=== PATIENT | male | born 1960 | race Caucasian/White ===

== ENCOUNTER 2017-03-18 16:50 | Observation (INO) | payer MEDICARE ==
[~2017-03-18] VITALS: Ht 165.1 cm; Wt 136.0 kg
[~2017-03-18 16:50] MED LIST: ADLT ASA LOW81 MG PO; AMOXICILLIN250 M1 PO; ANDROGEL1 % TD; ATENOLOL25 MG PO; ATENOLOL50 MG PO; AUGMENTIN875TAB PO; BAYER LOW81 MG PO; BENTYL10 MG PO; CALCIUM 600 +600 MG PO; CARAFATE PO; CETIRIZ/PSE1 TAB PO; DELSYM30 MG/5 ML OR; DILAUDID 2MG2 MG/TAB PO; ENALAPRIL10 MG OR; FLEXERIL OR; FLEXERIL PO; FLUARIX QUADRIV1 INJ IM; HYZAAR1 TAB PO; IMODIUM A-D2 MG PO; LORTAB 1010 MG PO; LORTAB 5/3255 MG PO; LORTAB/VICODIN1 TAB OR; LOSARTAN/HCT1 TA1 PO; MEDDOSEPAK PO; MELOXICAM15 MG PO; MELOXICAM7.5 MG OR; MUCINEX DM1 TAB OR; NAPROSYN500 MG OR; ONE DAILY FOR MEN 50 PO; PAROXETINE20 MG PO; PERCOCET 5/325M1 TAB OR; PREVACID30 M3 PO; PROTONIX40 M2 PO; SIMVASTATIN40 MG OR; SIMVASTATIN40 MG PO; TIZANIDINE4 MG PO; TORADOL PO; ULTRAM50 M1 PO; ZOFRAN ODT4 MG PO; ZPAK PO; ZYRTEC10 MG PO
[2017-03-18 17:48] VITALS: BP 179/96
[2017-03-18 18:05] LABS: HEMATOCRIT 42.7 % (39.0-50.0); IMMATURE GRANULOCYTES 1.3 % (0.0-1.0); MEAN CELL VOLUME 86.8 fL CALC (80.0-100.0); MEAN CORPUSCULAR HGB 28.5 pG CALC (26.0-32.0); MEAN CORPUSCULAR HGB CONC 32.8 g/L CALC (32.0-36.0); NEUT# 5.26 thou/uL (1.82-7.42); RED BLOOD COUNT 4.92 mill/uL (4.70-6.10); RED CELL DISTRI WIDTH 13.6 % (11.5-15.5)
[2017-03-18 18:30] VITALS: BP 146/90
[2017-03-18 18:30] LABS: ANION GAP 19 (6-22 (CALC)); BUN 26 mg/dL (9-20); BUN/CREATININE RATIO 21 (12-20 (CALC)); CALCIUM 10.9 mg/dL (8.4-10.2); CALCULATED LDLCHOLESTEROL 47 mg/dL (62-129 (CALC)); CARBON DIOXIDE 27 mmol/l (22-30); CHLORIDE 104 mmol/l (95-108); CHOLESTEROL HDL RATIO 2.6 (<4.4 (CALC)); CREATININE 1.2 mg/dL (0.7-1.3); GFR > 60 ML/MIN (>=60 (CALC)); GFR FOR AFR.AMER. > 60 ML/MIN (>=60 (CALC)); GLUCOSE 103 mg/dL (75-110); HDL CHOLESTEROL 52 mg/dL (>=40); POTASSIUM 4.1 mmol/l (3.5-5.1); SODIUM 146 mmol/l (137-146); TOTAL CHOLESTEROL 134 mg/dl (0-199); TOTAL TRIGLYCERIDES 179 mg/dl (30-149); VLDL CHOLESTROL 36 mg/dl (8-62 (CALC))
[2017-03-18 19:56] LABS: URINE BILIRUBIN - DIPSTICK NEGATIVE (NEGATIVE); URINE BLOOD DIPSTICK TRACE-INTACT (NEGATIVE); URINE COLOR YELLOW; URINE GLUCOSE - DIPSTICK NEGATIVE (NEGATIVE); URINE KETONE NEGATIVE (NEGATIVE); URINE LEUK ESTERASE NEGATIVE (NEGATIVE); URINE NITRITE - DIPSTICK NEGATIVE (Negative); URINE PH 5.5 (4.5-8.0); URINE PROTEIN - DIPSTICK NEGATIVE (NEG-TRACE); URINE SPECIFIC GRAVITY 1.025; URINE UROBILINOGEN - DIPSTICK 0.2 E.U./dL (0.2)
[2017-03-18 19:57] LABS: URINE CLARITY CLEAR
--- NOTE | 2017-03-18 19:58 | NUR ---
PT ARRIVED ON UNIT @ [address] DALEY, ALERT AND ORIENTED X 4, C/O DIZZINESS, ORIENTED TO ROOM AND CALL SHAVER. RADIOLOGY CALLED TO REPORT PROTOCOL FOR CT ORDER AND DR DALEY CALLED TO CLARIFY ORDER FROM CT WITH CONTRAST TO CT WITHOUT CONTRAST. TRANSPORTED OFF UNIT TO CT & X-RAY VIA W/C AND BACK TO UNIT POST PROCEDURE. FAMILY MEMBERS AT BEDSIDE, WILL CONTINUE TO MONITOR.
--- NOTE | 2017-03-18 20:00 | NUR ---
PATIENT RESTING IN BED AT THIS TIME-AWAKE ALERT AND ORIENTEDX3. MULTIPLE FAMILY MEMBERS AT BEDSIDE. PATIENT ADMITTED FOR DIZZINESS AND SAFETY PRECAUTIONS REINFORCED. VERBALIZES UNDERSTANDING. NEW IV SITE STARTED TO LEFT FOREARM-#22 GAUGE WITH GOOD BLOOD RETURN. PATIENT STATES THAT HE DOES HAVE HISTORY OF BACK SURGERY WITH CHRONIC BACK PAIN ISSUES. DENIES ANY DIFFICULTY VOIDING AND STATES HAD BM TODAY. LUNGS ARE CLEAR AND HR IS IRREGULAR. EKG DONE AT BEDSIDE. TELE MONITORING DEVICE IN PLACE. ATE WELL FOR DINNER. CALL LIGHT IN REACH. WILL CONT TO MONITOR.
--- NOTE | 2017-03-18 21:30 | NUR ---
PATIENT MEDICATED FOR CHRONIC BACK PAIN WITH LORTAB 10/325MG PO FOR 6/10 PAIN SCALE. RESTING IN BED. CALL LIGHT IN REACH. WILL CONT TO MONITOR.
[2017-03-19] VITALS (7 sets, daily range): BP systolic 109–143; BP diastolic 70–83
--- NOTE | 2017-03-19 00:32 | NUR ---
RECIEVED CALL FROM ER-HR IN HIGH TEENS. RESPONDED TO ROOM AND PATIENT RESTING IN BED WATCHING ELECTRONICS AT THIS TIME. DENIES ANY PAIN OR PALPATATIONS. HR-60'S AND IRREGULAR AT THIS TIME. SKIN IS WARM AND DRY. CALL LIGHT IN REACH. WILL CONT TO MONITOR.
--- NOTE | 2017-03-19 01:49 | NUR ---
PATIENT MEDICATED FOR CHRONIC BACK PAIN WITH LORTAB 10/325MG PO FOR 6/10 PAIN SCALE. RESTING IN BED-CALL LIGHT IN REACH. WILL CONT TO MONITOR.
--- NOTE | 2017-03-19 04:30 | NUR ---
PATIENT RESTING IN BED AT THIS TIME WITH NO COMPLAINTS. CALL LIGHT IN REACH. WILL CONT TO MONITOR.
--- NOTE | 2017-03-19 07:00 | NUR ---
RECEIVED BEDSIDE REPORT FROM BABAK KRISHNAN. RESTING IN BED WITH EYES CLOSED, AWAKENS EASILY. RESPS EVEN AND UNLABORED ON ROOM AIR, TELE MONITOR IN PLACE. DENIES PAIN OR DISCOMFORT. PLAN OF CARE DISCUSSED. SAFETY PRECAUTIONS REINFORCED. BED IN LOWEST POSITION WITH WHEELS LOCKED. CALL LIGHT WITHIN REACH. ENCOURAGED PT TO CALL FOR ANY NEEDS.
[2017-03-19 07:18] LABS: ALBUMIN 4.2 g/dL (3.2-5.0); ALKALINE PHOSPHATASE 53 u/l (38-126); ANION GAP 17 (6-22 (CALC)); BILIRUBIN, TOTAL 0.4 mg/dL (0.0-1.4); BUN 20 mg/dL (9-20); BUN/CREATININE RATIO 17 (12-20 (CALC)); CALCIUM 10.4 mg/dL (8.4-10.2); CARBON DIOXIDE 27 mmol/l (22-30); CHLORIDE 106 mmol/l (95-108); CREATININE 1.2 mg/dL (0.7-1.3); GFR > 60 ML/MIN (>=60 (CALC)); GFR FOR AFR.AMER. > 60 ML/MIN (>=60 (CALC)); GLUCOSE 103 mg/dL (75-110); POTASSIUM 4.1 mmol/l (3.5-5.1); SGOT/AST 24 u/l (17-59); SGPT/ALT 42 u/l (21-72); SODIUM 146 mmol/l (137-146); TOTAL PROTEIN 6.9 g/dL (6.3-8.2)
--- NOTE | 2017-03-19 08:30 | NUR ---
DR DALEY IN WITH PT, NEW ORDERS RECEIVED.
--- NOTE | 2017-03-19 10:35 | NUR ---
TELE CHECK CALL RECEIVED FROM IN ER. UPON ENTERING ROOM PT WAS LEFT SIDE LYING IN BED AWAKE. SKIN PWD. DENIES PAIN/ MANUAL HR 65 AND IRREGULAR. DENIES PALPITATIONS. PT STATES "SOMETIMES I DO FEEL WEAK".
[2017-03-19] MEDS ORDERED: TRIGLIDE160 MG PO (14:49)
[2017-03-19] MEDS ORDERED: D32000 UNI1 PO (14:53)
[2017-03-19] MEDS ORDERED: B-12250 MCG PO (14:57)
--- NOTE | 2017-03-19 15:36 | NUR ---
AMBULATING IN HALLWAY WITH STEADY GAIT ACCOMPANIED BY PHYSICAL THERAPY.
--- NOTE | 2017-03-19 19:00 | NUR ---
RECEIVED CHANGE OF SHIFT REPORT FROM EULOGIO BUNCH. PATIENT LYING IN BED AND APPEARS NOT TO BE IN ANY APPARENT ACUTE DISTRESS OR DISCOMFORT. WILL CONTINUE TO MONITOR.
--- NOTE | 2017-03-20 | NUR ---
NO APPARENT ACUTE DISTRESS NOTED. RESTING WITH EYES CLOSED AND APPEARS TO BE ASLEEP.
--- NOTE | 2017-03-20 04:00 | NUR ---
NO APPARENT ACUTE CHANGES NOTED IN PT'S CONDITION.
[2017-03-20 05:36] LABS: HEMATOCRIT 40.2 % (39.0-50.0); HEMOGLOBIN 13.2 g/dl (14.0-18.0); IMMATURE GRANULOCYTES 1.2 % (0.0-1.0); MEAN CELL VOLUME 87.6 fL CALC (80.0-100.0); MEAN CORPUSCULAR HGB 28.8 pG CALC (26.0-32.0); MEAN CORPUSCULAR HGB CONC 32.8 g/L CALC (32.0-36.0); NEUT# 4.35 thou/uL (1.82-7.42); RED BLOOD COUNT 4.59 mill/uL (4.70-6.10); RED CELL DISTRI WIDTH 13.8 % (11.5-15.5)
[2017-03-20 05:40] VITALS: BP 142/84
[2017-03-20 06:07] LABS: ALKALINE PHOSPHATASE 47 u/l (38-126); ANION GAP 17 (6-22 (CALC)); BILIRUBIN, TOTAL 0.3 mg/dL (0.0-1.4); BUN 21 mg/dL (9-20); BUN/CREATININE RATIO 19 (12-20 (CALC)); CALCIUM 10.3 mg/dL (8.4-10.2); CARBON DIOXIDE 25 mmol/l (22-30); CHLORIDE 107 mmol/l (95-108); CREATININE 1.1 mg/dL (0.7-1.3); GFR > 60 ML/MIN (>=60 (CALC)); GFR FOR AFR.AMER. > 60 ML/MIN (>=60 (CALC)); GLUCOSE 106 mg/dL (75-110); SGOT/AST 24 u/l (17-59); SGPT/ALT 40 u/l (21-72); SODIUM 145 mmol/l (137-146); TOTAL PROTEIN 6.7 g/dL (6.3-8.2)
--- NOTE | 2017-03-20 07:00 | NUR ---
RECEIVED BEDSIDE REPORT FROM JAVED KRISHNAN. RESTING IN SUPINE POSITION WITH EYES CLOSED, AWAKENS EASILY. RESPS EVEN AND UNLABORED ON ROOM AIR, TELE MONITOR IN PLACE. RESQUESTS PAIN MEDS FOR C/O BACK PAIN, WILL MEDICATE PER MAR. PLAN OF CARE DISCUSSED. SAFETY PRECAUTIONS REINFORCED. BED IN LOWEST POSITION WITH WHEELS LOCKED. CALL LIGHT WITHIN REACH. ENCOURAGED PT TO CALL FOR ANY NEEDS.
[2017-03-20 07:33] VITALS: BP 141/82
--- NOTE | 2017-03-20 07:40 | NUR ---
MEDICATED WITH LORTAB PO FOR C/O 04/19 BACK PAIN.
[2017-03-20 07:41] VITALS: BP 141/82
--- NOTE | 2017-03-20 08:25 | NUR ---
DR DALEY IN WITH PT, NEW ORDERS RECEIVED.
--- NOTE | 2017-03-20 10:10 | NUR ---
Discharge instructions given. Patient verbalizes understanding of same. Discharged in stable condition via Ambulatory to Home with family. All belongings sent with pt.
== END 2017-03-20 10:08 | disposition home or self-care (01) ==
LOC: MS2 16:50
PROVIDERS: ADMIT Internal Medicine Geriatric Medicine; ATTEND Internal Medicine Geriatric Medicine
DX: R42 Dizziness and giddiness (principal); I10 Essential (primary) hypertension; E78.5 Hyperlipidemia, unspecified; K27.9 Peptic ulcer, site unspecified, unspecified as acute or chronic, without hemorrhage or perforation; K21.9 Gastro-esophageal reflux disease without esophagitis; I25.10 Atherosclerotic heart disease of native coronary artery without angina pectoris; F41.9 Anxiety disorder, unspecified; E66.01 Morbid (severe) obesity due to excess calories; Z68.42 Body mass index [BMI] 45.0-49.9, adult; H93.19 Tinnitus, unspecified ear; I49.3 Ventricular premature depolarization; R11.0 Nausea; M19.90 Unspecified osteoarthritis, unspecified site

== ENCOUNTER 2021-03-22 15:40 | Emergency (ER) | payer MEDICARE ==
[~2021-03-22] VITALS: Ht 177.8 cm; Wt 120.0 kg
[~2021-03-22 15:40] MED LIST changes: +B-12250 MCG PO; +D32000 UNI1 PO; +TRIGLIDE160 MG PO
[2021-03-22 18:11] LABS: HEMATOCRIT 37.8 % (39.0-50.0); HEMOGLOBIN 12.3 g/dl (14.0-18.0); IMMATURE GRANULOCYTES 0.2 % (0.0-5.0); MEAN CELL VOLUME 85.7 fL CALC (80.0-100.0); MEAN CORPUSCULAR HGB 27.9 pG CALC (26.0-32.0); MEAN CORPUSCULAR HGB CONC 32.5 g/dL CAL (32.0-36.0); NEUT# 12.9 thou/uL (1.82-7.42); RED BLOOD COUNT 4.41 mill/uL (4.70-6.10); RED CELL DISTRI WIDTH 13.9 % (11.5-15.5); URINE BILIRUBIN - DIPSTICK NEGATIVE (NEGATIVE); URINE BLOOD DIPSTICK LARGE (NEGATIVE); URINE COLOR BROWN; URINE GLUCOSE - DIPSTICK NEGATIVE (NEGATIVE); URINE KETONE NEGATIVE (NEGATIVE); URINE LEUK ESTERASE TRACE (NEGATIVE); URINE PH 6.5 (4.5-8.0); URINE PROTEIN - DIPSTICK 100 mg/dL (NEG-TRACE); URINE SPECIFIC GRAVITY 1.025; URINE UROBILINOGEN - DIPSTICK 0.2 E.U./dL (0.2)
[2021-03-22 18:12] LABS: URINE NITRITE - DIPSTICK NEGATIVE (Negative)
[2021-03-22 18:24] LABS: ALBUMIN 4.3 g/dL (3.2-5.0); CREATININE 1.5 mg/dL (0.7-1.3); POTASSIUM 3.9 mmol/l (3.5-5.1); URINE MUCUS MANY hpf (NONE-FEW); URINE RBC >100 RBC/hpf (0-5); URINE WBC 50-100 WBC/hpf (0-5)
[2021-03-22 18:26] LABS: BILIRUBIN, TOTAL 0.5 mg/dL (0.0-1.4); TOTAL PROTEIN 8.1 g/dL (6.3-8.2)
[2021-03-22] MEDS ORDERED: KEFLEX500 MG PO (19:21)
[2021-03-22] MEDS ORDERED: ULTRAM50 M1 PO (19:23)
[2021-03-22 19:29] VITALS: BP 160/82
== END 2021-03-22 19:40 | disposition home or self-care (01) ==
LOC: ED 15:40
PROVIDERS: Emergency Medicine
DX: N13.6 Pyonephrosis (principal); I10 Essential (primary) hypertension; B95.2 Enterococcus as the cause of diseases classified elsewhere

== ENCOUNTER 2023-10-23 15:20 | Observation (INO) | payer MEDICARE ==
[~2023-10-23] VITALS: Ht 177.8 cm; Wt 133.8 kg
[2023-10-23] VITALS (30 sets, daily range): BP systolic 133–197; BP diastolic 69–109
[~2023-10-23 15:20] MED LIST changes: +KEFLEX500 MG PO
[2023-10-23] MEDS ORDERED: ASPIRIN 81 MG/TAB PO ONE (15:40)
[2023-10-23] MEDS ORDERED: NITROGLYCERIN 0.4 MG/TAB SL ONE ×3 (15:40→17:45)
[2023-10-23 15:54] LABS: BASO% 0.6 % (0-3); EOS% 0.8 % (0-8); LYMPH% 21.1 % (15-41); MEAN CELL VOLUME 83.8 fL CALC (80.0-100.0); MEAN CORPUSCULAR HGB 26.9 pG CALC (26.0-32.0); MEAN CORPUSCULAR HGB CONC 32.2 g/dL CAL (32.0-36.0); MONO% 6.2 % (2-13); NEUT# 8.39 thou/uL (1.82-7.42); NEUT% 70.3 % (42-76); RED BLOOD COUNT 5.42 mill/uL (4.70-6.10); RED CELL DISTRI WIDTH 14.3 % (11.5-15.5)
[2023-10-23 15:55] LABS: HEMATOCRIT 45.4 % (39.0-50.0); HEMOGLOBIN 14.6 g/dl (14.0-18.0)
[2023-10-23 16:08] LABS: ALBUMIN 4.5 g/dL (3.2-5.0); BILIRUBIN, TOTAL 0.4 mg/dL (0.2-1.3); POTASSIUM 3.6 mmol/l (3.5-5.1); TOTAL PROTEIN 8.4 g/dL (6.3-8.2)
[2023-10-23 16:09] LABS: INTERNATIONAL NORMALIZED RATIO 1.1 RATIO (0.7-1.3)
[2023-10-23 16:11] LABS: PROTHROMBIN TIME 10.3 SECONDS (9.0-12.5)
[2023-10-23] MEDS ORDERED: NITROGLYCERIN 2% OINT UD 1 GM/PAK TD ONE (17:45)
[2023-10-23 18:59] LABS: URINE BILIRUBIN - DIPSTICK Negative (NEGATIVE); URINE BLOOD DIPSTICK Small (NEGATIVE); URINE GLUCOSE - DIPSTICK Negative (NEGATIVE); URINE KETONE Negative (NEGATIVE); URINE LEUK ESTERASE Negative (NEGATIVE); URINE NITRITE - DIPSTICK Negative (Negative); URINE PROTEIN - DIPSTICK >=300 mg/dL (NEG-TRACE); URINE SPECIFIC GRAVITY >=1.030; URINE UROBILINOGEN - DIPSTICK 0.2 E.U./dL (0.2)
[2023-10-23 19:05] LABS: URINE COLOR Yellow
[2023-10-23 19:06] LABS: URINE WBC 0-2 WBC/hpf (0-5)
[2023-10-23] MEDS ORDERED: MAGNESIUM HYDROXIDE 30 ML UDC PO PRN (20:35)
[2023-10-23] MEDS ORDERED: Zaleplon 5 MG/CAP PO PRN (20:35)
[2023-10-23] MEDS ORDERED: ACETAMINOPHEN 325 MG/TAB PO PRN (20:35)
[2023-10-23] MEDS ORDERED: XARELTO20 MG PO (20:39)
[2023-10-23] MEDS ORDERED: DIGOXIN250 MCG PO (20:39)
[2023-10-23] MEDS ORDERED: HYDROcodone/Acetaminophen 1 COMBO TAB PO PRN (20:40)
[2023-10-23] MEDS ORDERED: RIVAROXABAN 20 MG TAB PO SCH (21:00)
[2023-10-23] MEDS ORDERED: LASIX20 MG PO (21:56)
[2023-10-24 03:18] VITALS: BP 123/51
[2023-10-24 04:42] VITALS: BP 123/51
[2023-10-24 06:02] LABS: BASO% 0.6 % (0-3); HEMATOCRIT 39.5 % (39.0-50.0); HEMOGLOBIN 12.7 g/dl (14.0-18.0); IMMATURE GRANULOCYTES 0.7 % (0.0-5.0); LYMPH% 20.7 % (15-41); MEAN CELL VOLUME 84.6 fL CALC (80.0-100.0); MEAN CORPUSCULAR HGB 27.2 pG CALC (26.0-32.0); MEAN CORPUSCULAR HGB CONC 32.2 g/dL CAL (32.0-36.0); MONO% 5.9 % (2-13); NEUT# 7.64 thou/uL (1.82-7.42); NEUT% 71.1 % (42-76); RED BLOOD COUNT 4.67 mill/uL (4.70-6.10); RED CELL DISTRI WIDTH 14.4 % (11.5-15.5)
[2023-10-24 06:33] LABS: ALBUMIN 3.6 g/dL (3.2-5.0); BILIRUBIN, TOTAL 0.3 mg/dL (0.2-1.3); CHOLESTEROL HDL RATIO 4.1 (<4.4 (CALC)); CREATININE 0.9 mg/dL (0.7-1.3); MAGNESIUM 1.6 mg/dL (1.6-2.3); POTASSIUM 3.6 mmol/l (3.5-5.1)
[2023-10-24 06:40] VITALS: BP 156/85
[2023-10-24 06:42] LABS: TOTAL PROTEIN 6.6 g/dL (6.3-8.2)
[2023-10-24] MEDS ORDERED: ISOSORB MONO30 MG PO (08:46)
[2023-10-24] MEDS ORDERED: NITROSTAT0.4 MG SL (08:51)
[2023-10-24] MEDS ORDERED: PARoxetine 10 MG/TAB PO SCH (09:00)
[2023-10-24] MEDS ORDERED: LOSARTAN Potassium 50 MG/TAB PO SCH (09:00)
[2023-10-24] MEDS ORDERED: ATENOLOL 50 MG/TAB PO SCH (09:00)
[2023-10-24] MEDS ORDERED: ASPIRIN EC 81 MG/TAB PO SCH (09:00)
== END 2023-10-24 10:18 | disposition home or self-care (01) ==
LOC: ED 15:20 → ED-I 16:17 → ED 16:17 → MS2 19:01
PROVIDERS: Nurse Practitioner; Nurse Practitioner Family; ADMIT Internal Medicine; ATTEND Internal Medicine
DX: R07.2 Precordial pain (principal); I12.9 Hypertensive chronic kidney disease with stage 1 through stage 4 chronic kidney disease, or unspecified chronic kidney disease; N18.9 Chronic kidney disease, unspecified; I25.10 Atherosclerotic heart disease of native coronary artery without angina pectoris; I48.20 Chronic atrial fibrillation, unspecified; E78.5 Hyperlipidemia, unspecified; Z79.01 Long term (current) use of anticoagulants